=== PATIENT | male | born 2000 | race Caucasian/White ===

== ENCOUNTER 2023-01-02 05:21 | Emergency (ER) | payer BC ==
[~2023-01-02] VITALS: Ht 175.3 cm; Wt 77.1 kg
--- NOTE | 2023-01-02 06:04 | NUR ---
BIBFAMILY FROM HOME C/O N/V. BLOOD TINGED EMESIS X7 SINCE 2199. AAOx4. Positioned to comfortable position. Vitals checked. Emesis bag offered.
--- NOTE | 2023-01-02 06:10 | NUR ---
DR. ELISE RAHMAN AT PT'S BEDSIDE FOR EVAL
[2023-01-02] MEDS ORDERED: ONDANSETRON HCL/PF 4 MG/2 ML VIAL ONE (06:13)
--- NOTE | 2023-01-02 06:16 | NUR ---
URINE SENT TO LAB.
--- NOTE | 2023-01-02 06:20 | NUR ---
IV cannula L AC G18. Blood drawn and sent to lab.
[2023-01-02] MEDS ORDERED: ONDANSETRON HCL/PF 4 MG/2 ML VIAL IVP ONE (06:30)
[2023-01-02] MEDS ORDERED: IV NS 0.9% 1,000 ML BAG IV ONE (06:30)
[2023-01-02 06:44] LABS: BASOPHILS % (AUTO) 0.1 % (0.0-2.0); EOSINOPHILS % (AUTO) 0.1 % (0.0-6.0); HEMATOCRIT 48 % (39-51); LYMPHOCYTES # (AUTO) 0.3 K/uL (0.8-4.8); LYMPHOCYTES % (AUTO) 2.8 % (20.0-44.0); MEAN CORPUSCULAR HGB CONC 33 g/dl (31.0-36.0); MEAN CORPUSCULAR VOLUME 91 fL (80-96); MONOCYTES # (AUTO) 0.5 K/uL (0.1-1.30); MONOCYTES % (AUTO) 4.3 % (2.0-12.0); NEUTROPHILS % (AUTO) 92.7 % (43.0-81.0); PLATELET COUNT (AUTO) 195 K/uL (150-450); RED BLOOD CELL COUNT(AUTO) 5.27 MIL/uL (4.5-6.0); WHITE BLOOD COUNT (AUTO) 11.8 K/uL (4.3-11.0)
[2023-01-02 06:53] LABS: BILIRUBIN,URINE 1+ (NEGATIVE); COLOR,URINE YELLOW (YELLOW); LEUKOCYTE ESTERASE ,URINE NEGATIVE (NEGATIVE); NITRITE, URINE NEGATIVE (NEGATIVE); PROTEIN,URINE NEGATIVE (NEGATIVE); UGLUCOSE NEGATIVE (NEGATIVE); UROBILINOGEN,URINE 0.2 EU/dL (0.2)
[2023-01-02 06:55] LABS: ALBUMIN 4.4 g/dL (3.4-5.0); BILIRUBIN,DIRECT 0.2 mg/dL (0.0-0.2); BILIRUBIN,TOTAL 0.8 mg/dL (0.2-1.0); CALCIUM, SERUM 9.5 mg/dL (8.5-10.1); CREATININE 1.2 mg/dL (0.6-1.3); TOTAL PROTEIN, SERUM 7.7 g/dL (6.4-8.2)
--- NOTE | 2023-01-02 07:00 | NUR ---
CALL [facility] FOR UPDATE
[2023-01-02 07:01] LABS: POTASSIUM 4.2 mmol/L (3.5-5.1)
--- NOTE | 2023-01-02 07:25 | NUR ---
REPORT GIVEN TO MIKE ORDAZ
[2023-01-02] MEDS ORDERED: ONDA4TAB11 PO (07:43)
[2023-01-02 07:52] VITALS: BP 131/61
--- NOTE | 2023-01-02 07:52 | NUR ---
Patient discharged to home in stable condition. Written and verbal after care instructions given. Patient verbalizes understanding of instruction.
--- NOTE | 2023-01-02 07:52 | NUR ---
IV removed. Catheter intact and site benign. Pressure and 4x4 applied to site. No bleeding noted.
[2023-01-02 08:04] LABS: BACTERIA,URINE Rare /HPF (None Seen); RBC,URINE 0-2 /HPF (0-2); SQUAMOUS EPITHELIAL CELL,UR Rare /HPF (None Seen); WBC,URINE 0-2 /HPF (0-3)
== END 2023-01-02 07:53 | disposition home or self-care (01) ==
LOC: ER 05:25
DX: R11.2 Nausea with vomiting, unspecified (principal)
CPT/HCPCS: 99283; 96374; 96361; 85025; 80048; 83690; 80076; 81001; 36415; J2405; J7030